=== PATIENT | male | born 1975 | race Caucasian/White ===

== ENCOUNTER 2020-07-10 22:51 | Emergency (ER) | payer OTHER ==
[2020-07-10 23:44] LABS: HEMOGLOBIN 15.2 gm/dl (14.0-17.5); RED BLOOD COUNT 4.9 M/UL (4.20-5.50); WHITE BLOOD COUNT 8.7 K/UL (4.5-11.0)
[2020-07-10 23:59] LABS: BUN/CREATININE RATIO 17 (0-10)
== END 2020-07-11 07:15 | disposition home or self-care (01) ==
LOC: ER1 22:51
PROVIDERS: Emergency Medicine
DX: R10.9 Unspecified abdominal pain (principal); R11.2 Nausea with vomiting, unspecified; M54.9 Dorsalgia, unspecified
CPT/HCPCS: 80053; 81001; 85025; 87086; 96374; 96375; 99284; J2270; J2405